=== PATIENT | male | born 1985 | race Caucasian/White ===

== ENCOUNTER 2024-03-05 18:17 | Emergency (ER) | payer MEDICAID ==
[~2024-03-05] VITALS: Ht 172.7 cm; Wt 63.5 kg
[2024-03-05] MEDS ORDERED: TETRACAINE HCL 0.5% OPHT DROP 2 ML BOTTLE ONE (18:40)
[2024-03-05] MEDS ORDERED: FLUORESCEIN SODIUM 1 MG STRIP ONE (18:43)
[2024-03-05] MEDS: FLUORESCEIN SODIUM 1 MG STRIP OP ONE ×2 (18:47→18:48)
[2024-03-05] MEDS: TETRACAINE HCL 0.5% OPHT DROP 2 ML BOTTLE OP ONE (18:47)
[2024-03-05] MEDS ORDERED: CIPR5DRO EACHEYE (20:29)
[2024-03-05 20:54] VITALS: BP 120/78; TEMP 98; O2SAT 99
== END 2024-03-05 20:55 | disposition home or self-care (01) ==
LOC: ER 18:19
DX: S05.01XA Injury of conjunctiva and corneal abrasion without foreign body, right eye, initial encounter (principal); Z79.899 Other long term (current) drug therapy; W44.8XXA Other foreign body entering into or through a natural orifice, initial encounter; Y93.89 Activity, other specified; Y92.89 Other specified places as the place of occurrence of the external cause; Y99.8 Other external cause status
CPT/HCPCS: 70480; A4606; A4663